=== PATIENT | female | born 1930 | race Caucasian/White ===

== ENCOUNTER 2016-08-11 17:34 | Inpatient (IN) | payer MEDICARE, OTHER ==
[~2016-08-11] VITALS: Ht 167.6 cm; Wt 58.1 kg
[2016-08-11 18:23] LABS: BASOPHILS 0.2 % (0.0-2.0); EOSINOPHILS 1.2 % (0-7); HEMATOCRIT 42.2 % (36.0-48.0); HEMOGLOBIN 14.1 g/dL (12-16); IMMATURE GRANULOCYTES 0.3 % (0-5); LYMPHOCYTES 17.3 % (15-50); MCH 31.1 pg (26.0-34.0); MCHC 33.4 g/dL (31.0-37.0); MONOCYTES 4.4 % (2-11); NEUTROPHILS 76.6 % (40-80); PLATELET COUNT 228 10x3/uL (130-400); RBC 4.54 10x6/uL (4.00-5.40); RDW 13.8 % (11.5-14.5); WBC 9.3 10x3/uL (4.8-10.8)
[2016-08-11 18:30] LABS: INR 0.96 (0.85-1.17); PROTIME 12.6 SECONDS (11.6-15.0)
[2016-08-11 18:35] LABS: ALBUMIN 4.2 g/dL (3.4-5.0); ANION GAP 14.3 mmol/L (8-16); BILIRUBIN - TOTAL 0.53 mg/dL (0.2-1.3); CALCIUM 9.2 mg/dL (8.5-10.1); CARBON DIOXIDE 28.8 mmol/L (21.0-32.0); CREATININE - SERUM 0.8 mg/dL (0.6-1.3); POTASSIUM - SERUM 4.1 mmol/L (3.5-5.1); PROTEIN - SERUM 7.5 g/dL (6.4-8.2)
[2016-08-11 19:29] LABS: APPEARANCE CLEAR (CLEAR); BILIRUBIN NEGATIVE (NEGATIVE); COLOR YELLOW (YELLOW); GLUCOSE NEGATIVE (NEGATIVE); KETONE NEGATIVE (NEGATIVE); LEUKOCYTE ESTERASE NEGATIVE (NEGATIVE); NITRITE NEGATIVE (NEGATIVE); PROTEIN NEGATIVE (NEGATIVE); UROBILINOGEN NORMAL (NORMAL)
[2016-08-11 20:00] VITALS: BP 163/72
[2016-08-11 20:46] VITALS: BP 163/72; BMI 20.7
--- NOTE | 2016-08-11 21:04 | NUR ---
PT ARRIVED FROM ER AT THIS TIME WITH FAMILY AT SIDE PT PRESENTED WITH LEFT HIP FX OF THE FEMORAL NECK PER ER REPORT. PT IVP 20G TO LEFT WRIST INFUSING D51/2 NS WITH 20KCL AT THIS TIME NO SKIN BREAK DOWN OBSERVED RESPERATIONS ARE EVEN AND UNLABORED ON ROOM AIR WITH ALL LOBES BILATERALLY CLEAR. CALL LIGHT IN REACH SRX2 BED LOW AND LOCKED FAMILY IN ROOM AT BEDSIDE AT THIS TIME WILL CONTINUE TO MONITOR
[2016-08-12] VITALS (13 sets, daily range): BP systolic 103–149; BP diastolic 49–83; Ht 167.6 cm; Wt 58.1 kg
[2016-08-12] MEDS ORDERED: COSOPT EYE DROPS5 ML EACH EYE (02:41)
[2016-08-12] MEDS ORDERED: XALATAN 0.0052.5 ML EACH EYE (02:41)
[2016-08-12] MEDS ORDERED: TIMOPTIC 0.5 % O5 ML EACH EYE (02:42)
--- NOTE | 2016-08-12 07:20 | NUR ---
PATIENT RECEIVED ALERT IN HIGH MAXWELL POSITION. RESPIRATIONS EVEN AND UNLABORED. DENIES NEEDS. SIDE RAILS UP X2. BED IN LOW POSITION. CALL LIGHT IN REACH.
--- NOTE | 2016-08-12 08:11 | NUR ---
PRE PROCEDURE MEDICATION ADMINISTERED WITH SIP OF WATER. WELL TOLERATED. DENIES NEEDS.
--- NOTE | 2016-08-12 09:34 | NUR ---
PATIENT OFF FLOOR TO SURGERY VIA BED
--- NOTE | 2016-08-12 11:40 | NUR ---
PATIENT BACK TO ROOM FROM SURGERY VIA BED. A/O X4. VITAL SIGNS STABLE. DRESSING TO LEFT HIP CLEAN, DRY AND INTACT. ICE PACK IN PLACE. INCENTIVE SPIROMETER AND TEACHING ON USE PROVIDED. DEMONSTRATES CORRECT USE. FAMILY PRESENT. DENIES PAIN. SCDS ON BILATERALLY. SIDE RAILS UP X2. BED IN LOW POSITION. CALL LIGHT IN REACH.
--- NOTE | 2016-08-12 13:20 | NUR ---
PATIENT ALERT IN HIGH MAXWELL POSITION. VITAL SIGNS STABLE. FAMILY PRESENT. SIDE RAILS UP X2. BED IN LOW POSITION. CALL LIGHT IN REACH. DENIES NEEDS.
--- NOTE | 2016-08-12 14:22 | NUR ---
ALERT IN BED. C/O PAIN 11/15. DILAUDID WELL TENDER SET UP ACCORDING TO ORDERS. USE EXPLAINED. STATES UNDERSTANDING. WELL TENDER BUTTON WITHIN REACH. REFUSES TO REPOSITION AT THIS TIME. SIDE RAILS UP X2. BED IN LOW POSITION. CALL LIGHT IN REACH. IVY ALARM ON.
--- NOTE | 2016-08-12 18:15 | NUR ---
PATIENT ALERT IN BED. NO SIGNS OF DISTRESS NOTED. PATIENT REPOSITIONED IN BED. PILLOW PLACED BENEATH LEFT SIDE. ICE PACK IN PLACED. SIDE RAILS UP X2. BED IN LOW POSITION. CALL LIGHT IN REACH. CRIME PREVENTION WORKER BUTTON IN HAND.
[2016-08-13] VITALS (7 sets, daily range): BP systolic 106–125; BP diastolic 43–67
--- NOTE | 2016-08-13 00:01 | NUR ---
PT SITTING UP IN BED PATTERN KEEPER MELO IN ROOM WITH PT AT THIS TIME AND NO DISTRESS OBSERVED PT RATES PAIN " SORE" PT DID NOT PROVIED NUMBER FOR PAIN SCALE RESPERATIONS EVEN AND UNLABORED BED LOW AND LOCKED CALL LIGHT IN REACH SRX2 WILL MONITOR
[2016-08-13 05:15] LABS: MCH 30.7 pg (26.0-34.0); MCHC 32.9 g/dL (31.0-37.0); MCV 93.2 fL (80.0-100.0); MEAN PLATELET VOLUME 10.2 fL (7.4-10.4); RDW 14.2 % (11.5-14.5); WBC 8.7 10x3/uL (4.8-10.8)
[2016-08-13 05:16] LABS: HEMATOCRIT 33.1 % (36.0-48.0); HEMOGLOBIN 10.9 g/dL (12-16); RBC 3.55 10x6/uL (4.00-5.40)
--- NOTE | 2016-08-13 07:15 | NUR ---
PATIENT RECEIVED IN HIGH MAXWELL POSITION RESTING WITH EYES CLOSED. RESPIRATIONS EVEN AND UNLABORED. SIDE RAILS UP X2. BED IN LOW POSITION. CALL LIGHT IN REACH. SCDS ON BILATERALLY. IVY ALARM ON. SIFTER AND MILLER BUTTON IN REACH.
--- NOTE | 2016-08-13 08:10 | NUR ---
PATIENT REPOSITIONED IN BED. WELL TOLERATED. SCHEDULED MEDICATION ADMINISTERED. DENIES NEEDS. SIDE RAILS UP X2. BED IN LOW POSITION. CALL LIGHT IN REACH.
--- NOTE | 2016-08-13 11:38 | NUR ---
PATIENT SITTING UP IN CHAIR ALERT. NO SIGNS OF DISTRESS NOTED. DILAUDID DENTAL EQUIPMENT REPAIRER D/C PER ORDERS. NORCO ADMINISTERED PER PRN ORDER. DENIES NEEDS. CALL LIGHT IN REACH. FAMILY PRESENT.
--- NOTE | 2016-08-13 12:45 | NUR ---
SITTING UP IN CHAIR EATING LUNCH AND VISITING WITH FAMILY. NO SIGNS OF DISTRESS NOTED. CALL LIGHT IN REACH. DENIES NEEDS.
--- NOTE | 2016-08-13 16:15 | NUR ---
PATIENT IN HIGH MAXWELL POSITION ALERT AND WATCHING TV. RESPIRATIONS EVEN AND UNLABORED. DENIES PAIN. SIDE RAILS UP X2. BED IN LOW POSITION. CALL LIGHT IN REACH.
--- NOTE | 2016-08-13 18:10 | NUR ---
ALERT IN HIGH MAXWELL POSITION WATCHING TV. RESPIRATIONS EVEN AND UNLABORED. DENIES PAIN AND OTHER NEEDS. BED IN LOW POSITION. CALL LIGHT IN REACH.
--- NOTE | 2016-08-13 19:00 | NUR ---
ASSISTED PATIENT TO BSC AND BACK TO BED. PATIENT HAD MEDIUM BM. AAOX4. RR EVEN AND UNLABORED. 0 S/S OF DISTRESS. STATES PAIN IS A 5/10. IV TO LEFT WRIST S/L WITH NO REDNESS OR SWELLING. KRAMER SECURED WITH STATLOCK AND DRAINING TO GRAVITY. SCD'S IN ROOM BUT OFF. SRX2. BED LOW. CALL LIGHT WITHIN REACH.
--- NOTE | 2016-08-14 00:03 | NUR ---
PATIENT SLEEPING IN SEMI-MAXWELL'S POSITION. NO VISUAL SIGNS OF DISTRESS. PATIENT'S BED IN THE LOWEST POSITION AND CALL LIGHT WITHIN REACH.
[2016-08-14 04:00] VITALS: BP 115/53
[2016-08-14 05:41] LABS: BASOPHILS 0.2 % (0.0-2.0); EOSINOPHILS 1.8 % (0-7); HEMATOCRIT 30.6 % (36.0-48.0); HEMOGLOBIN 10.1 g/dL (12-16); IMMATURE GRANULOCYTES 0.2 % (0-5); LYMPHOCYTES 20.4 % (15-50); MCH 30.1 pg (26.0-34.0); MCV 91.3 fL (80.0-100.0); MEAN PLATELET VOLUME 10.2 fL (7.4-10.4); MONOCYTES 9.3 % (2-11); NEUTROPHILS 68.1 % (40-80); PLATELET COUNT 165 10x3/uL (130-400); RBC 3.35 10x6/uL (4.00-5.40); RDW 13.7 % (11.5-14.5); WBC 8.5 10x3/uL (4.8-10.8)
[2016-08-14 06:14] LABS: ANION GAP 11.2 mmol/L (8-16); CARBON DIOXIDE 27.3 mmol/L (21.0-32.0); CREATININE - SERUM 0.8 mg/dL (0.6-1.3); POTASSIUM - SERUM 3.5 mmol/L (3.5-5.1)
[2016-08-14 08:10] VITALS: BP 149/60
--- NOTE | 2016-08-14 08:27 | NUR ---
PT ASSESSMENT COMPLETE AWAKE AND ALERT ORIENTED X 3 LUNGS CLAER BILATERALLY NO ACUTE DISTRESS NOTED VOICES ALL NEEDS TO STAFF. CALL LIGHT INREACH SIDE RAILS UP X 2 DRESSING INTACT TO LEFT HIP
[2016-08-14 11:31] VITALS: BP 114/57
--- NOTE | 2016-08-14 13:00 | NUR ---
PATIENT IN BED WITH IV INTACT. NO COMPLAINTS. FAMILY AT BEDSIDE. CALL LIGHT WITHIN REACH.
--- NOTE | 2016-08-14 14:54 | NUR ---
NUTRITION MONITORING & EVAL CHART REVIEWED, PT VISIT. TOLERATING REG DIET, 75 TO 100% INTAKE. WILL CONTINUE TO PROVIDE DIET, MONITOR PT PROGRESS. RD FOLLOWING
[2016-08-14 16:26] VITALS: BP 126/58
--- NOTE | 2016-08-14 16:53 | NUR ---
Patient Name: FLORES LR Admission Status: ER Accout number: [id number] Admission Date: 08-11-2016 : 1931 Admission Diagnosis: Attending: SELENE Current LOS: 3 Anticipated DC Date: 08-15-2016 Planned Disposition: Home Primary Insurance: MEDICARE A & B Discharge Planning Comments: CM MET WITH PATIENT AND NIECE (DAX) REGARDING D/C NEEDS AND PLANS. PATIENT HAS 2 STEPS W/O RAILS TO ENTER HER HOME AND NO STAIRS INSIDE. PATIENTS NIECE WILL DRIVE PATIENT HOME AT DISCHARGE. PATIENT STATED SHE WILL GO TO [place] TO HER NIECES HOME IN [place]. PATIENTS NIECE IS AN ORTHOPEDIC NURSE. PATIENT STATED SHE IS INDEPENDENT WITH HER CARE AND HAS A WHEELCHAIR, BS COMMODE, AND SHOWER CHAIR AT HOME. PATIENTS PCP IS DR. IBRAHIM AND PH[facility]AC[facility] IS [facility] [address] PATIENT REFUSED HOME HEALTH STATING HER NIECE WILL TAKE CARE OF HER. CM WILL CONTINUE TO FOLLOW PATIENT WITH D/C NEEDS AND PLANS. PCP DR. ALEXANDRIA ANNE ON [address]- [phone] DAX (NIECE) [phone] DEANA (NEPHEW) O [phone] OR C [phone] Assembly Operator: Kerline Bullock Is the patient Alert and Oriented? Yes 0 * How many steps to enter\exit or inside your home? 2 W/O RAIL 0 * PCP DR. IBRAHIM 0 * [facility] [address] * Preadmission Environment Home Alone 0 * ADLs Independent 0 * Equipment Bedside Commode Shower Chair Wheelchair 0 * List name and contact numbers for known caregivers / representatives who currently or will assist patient after discharge: DAX (NIECE) [phone] DEANA (NEPHEW) O- [phone] , C [phone] * Community resources currently utilized None 0 * Additional services required to return to the preadmission environment? Yes 0 * Can the patient safely return to the preadmission environment? Yes 0 * Has this patient been hospitalized within the prior 30 days at any hospital? No 0 Grand Total: 0
--- NOTE | 2016-08-14 18:19 | NUR ---
PT TOLERATING BLADDER TRAINING WELL WILL D/C KRAMER IN AM. NO ACUTE DISTRESS NOTED.
[2016-08-14 21:00] VITALS: BP 125/65
[2016-08-15 01:00] VITALS: BP 148/71
--- NOTE | 2016-08-15 04:00 | NUR ---
PATIENT SLEEPING WITH NO DISTRESS NOTED. DRESSING TO LEFT HIP CDI. SCD'S ON. BED ALARM ON. CALL LIGHT WITHIN REACH.
[2016-08-15 05:00] VITALS: BP 116/66
[2016-08-15 05:57] LABS: BASOPHILS 0.3 % (0.0-2.0); EOSINOPHILS 1.7 % (0-7); HEMATOCRIT 29.9 % (36.0-48.0); IMMATURE GRANULOCYTES 0.3 % (0-5); LYMPHOCYTES 18.5 % (15-50); MCH 30.2 pg (26.0-34.0); MCHC 33.4 g/dL (31.0-37.0); MCV 90.3 fL (80.0-100.0); MEAN PLATELET VOLUME 10.5 fL (7.4-10.4); MONOCYTES 10.7 % (2-11); NEUTROPHILS 68.5 % (40-80); RBC 3.31 10x6/uL (4.00-5.40); RDW 13.5 % (11.5-14.5); WBC 7.6 10x3/uL (4.8-10.8)
[2016-08-15 06:06] LABS: PLATELET COUNT 217 10x3/uL (130-400)
[2016-08-15 06:24] LABS: ALBUMIN 2.6 g/dL (3.4-5.0); ALKALINE PHOSPHATASE 56 U/L (46-116); ALT (SGPT) 25 U/L (10-68); CALC OSMOLALITY 284 mosm/kg (275-300); CALCIUM 8.3 mg/dL (8.5-10.1); CARBON DIOXIDE 28.7 mmol/L (21.0-32.0); CHLORIDE - SERUM 105 mmol/L (98-107); CREATININE - SERUM 0.7 mg/dL (0.6-1.3); GLUCOSE 117 mg/dL (74-106); POTASSIUM - SERUM 3.1 mmol/L (3.5-5.1); PROTEIN - SERUM 5.9 g/dL (6.4-8.2); SODIUM 142 mmol/L (136-145); UREA NITROGEN 14 mg/dL (7-18); eGFR NON AFRICAN AMERICAN 84 mL/min (90-120)
--- NOTE | 2016-08-15 07:07 | OP ---
PATIENT NAME: FLORES LR MEDICAL RECORD: [id number] :31 LOCATION:[id number] ADMISSION DATE:08/11/16 SURGEON: ANT ARORA MD DATE OF OPERATION: 08/12/2016 PREOPERATIVE DIAGNOSIS: Left femoral neck fracture. POSTOPERATIVE DIAGNOSIS: Left femoral neck fracture. PROCEDURE PERFORMED: Left hip hemiarthroplasty. SURGEON: Gilmer Arora MD. ANESTHESIA: Spinal. CONDITION: She tolerated the procedure well, was transferred to the recovery room in stable condition at the termination of the procedure. INDICATIONS: This is a pleasant 86-year-old female that had a fall, fractured her left proximal hip. She had a displaced femoral neck fracture. We discussed risks, benefits, and alternatives of surgery. She understood and wished to proceed. OPERATIVE REPORT: The patient was taken to the operating room and placed in supine position, a spinal anesthesia was obtained. She was then placed in a lateral position with her left hip up. Her left hip was confirmed to be the correct hip. It was then prepped and draped in normal fashion. The procedure was begun by doing a secondary ChloraPrep and then Ioban dressing placement. I then made a lateral incision, took this down, identified the IT band and split the IT band. The Charnley retractor was placed. The anterior portion of the gluteus medius and the capsule was then taken down as a unit. I then proceeded to do a cleanup cut on the femoral neck, removed the femoral head. I then proceeded to copiously irrigate following which the leg was taken to a bag and cookie cutter and canal finder were used to open the femur. I then broached up to a size 10. She was trialed with x-ray visualizing this. Her overall length did not look good to be off; therefore, she was this was taken out. She was copiously irrigated, then high offset size 10 stem with a 46 head and -3 neck were placed. She was reduced. She felt very stable on the table. She was irrigated, following which she was closed with 2 JuggerKnot suture anchors bringing the gluteus medius and capsule back to the trochanter. I then closed the IT band with a #1 barbed PDS. I then closed with 2-0 Vicryl, then raulito. She was at this juncture awakened and transferred to the recovery room in stable condition at the termination of the procedure, having tolerated the procedure well. TRANSINT:[id number] Voice Confirmation ID: [id number] DOCUMENT ID: [id number] OPERATIVE REPORT [id number] FLORES LR, ANT LIMA MD at 0707 CC: [id number] DICTATION DATE: 08/13/16 1436 AUTO BODY MECHANIC APPRENTICE: 08/13/16 1526 [place] [id number]
--- NOTE | 2016-08-15 07:40 | NUR ---
VERY ANGRY THIS MORNING BECAUSE KRAMER CATHETER WAS NOT DISCONTINUED ORDERED YESTERDAY. APOLOGIZED TO PT AND EXPLAINED THAT WE COULD GET THAT DONE FIRST THING THIS MORNING. PT VERBALIZED UNDERSTANDING. AWAKE AND ALERT. RESPIRATIONS EVEN AND NON LABORED. CALL LIGHT IN REACH, BED IN LOWEST POSITION WITH SRX2 AND WHEELS LOCKED. IVY MAT ALARM IN USE FOR FALL PRECAUTIONS. SCD'S OFF PER PT. WILL CONTINUE WITH PLAN OF CARE.
[2016-08-15 08:18] VITALS: BP 157/54
--- NOTE | 2016-08-15 08:35 | NUR ---
SCHEDULED MEDICATIONS ADMINISTERED AT THIS TIME. DRESSING TO LEFT HIP C/D/I. ASSESSMENT PERFORMED PER FLOWSHEET. KRAMER CATHETER D/C WITH CATH TIP INTACT. PT TOLERATED WITHOUT COMPLAINTS. DENIES PAIN AT THIS TIME. CALL LIGHT IN REACH, SRX2 WITH BED IN LOWEST POSITION AND LOCKED. IVY MAT ALARM IN USE AND SCD'S OFF PER PT. WILL CONTINUE WITH PLAN OF CARE.
[2016-08-15] MEDS ORDERED: HYDROCODON-ACE1 EAC7 PO (08:42)
--- NOTE | 2016-08-15 10:41 | NUR ---
CM REASSESSMENT NOTE: PATIENT IS GOING TO [facility] TO HER NIECES HOME. PATIENT STATED HER NIECE IS AN ORTHOPEDIC NURSE AND WILL BE TAKING CARE OF HER. PATIENT REFUSED HOME HEALTH. THE D/C IMM NOTICE SERVED. PATIENTS OTHER NIECE (DAX) WILL DRIVE HER TO [facility].
--- NOTE | 2016-08-15 10:45 | NUR ---
UP IN CHAIR PER PHYSICAL THERAPY AT THIS TIME. DENIES PAIN OR NEED FOR PAIN MEDICATION. CALL LIGHT IN REACH, WILL CONTINUE WITH PLAN OF CARE.
[2016-08-15] MEDS ORDERED: ASPIRIN325 MG PO (11:16)
--- NOTE | 2016-08-15 12:00 | NUR ---
REMAINS UP IN CHAIR AT THIS TIME. DISCHARGE PAPERWORK READY, BUT PT'S FAMILY MEMBER HAS TO GO GET PT'S CAR BEFORE PT CAN DISCHARGE. CALL LIGHT IN REACH, WILL CONTINUE WITH PLAN OF CARE.
[2016-08-15 12:01] VITALS: BP 131/54
--- NOTE | 2016-08-15 13:55 | NUR ---
DISCHARGE PAPERWORK REVIEWED WITH PT. DRESSING TO LEFT HIP CHANGER IN STERILE FASHION. DENIES QUESTIONS OR CONCERNS REGARDING MEDICATIONS OR DISCHARGE INSTRUCTIONS. IV TO LEFT WRIST D/C WITH CATH TIP INTACT. PT HAS ALREADY HAD FLU SHOT THIS SEASON. WILL D/C HOME WITH NIECE.
--- NOTE | 2016-09-19 16:33 | DS ---
PATIENT:FLORES LR :32 MEDICAL RECORD: [id number] DISCHARGE SUMMARY ADMISSION DATE: 08/11/16 DISCHARGE DATE: 08/15/16 DATE OF ADMISSION: 08/11/2016 DATE OF DISCHARGE: 08/15/2016 ADMITTING DIAGNOSIS: Left femoral neck fracture. DISCHARGE DIAGNOSIS: Left femoral neck fracture. PROCEDURE PERFORMED: Left hip hemiarthroplasty. HISTORY OF PRESENT ILLNESS: This is a pleasant 86-year-old female that fell, presents with a displaced left femoral neck fracture. She underwent a left hip hemiarthroplasty. She did quite well with this. She was able to progress with therapy. It was felt by the 7th, she could be discharged with home therapy. She was going to continue on weightbearing as tolerated with a walker, on anticoagulation therapy, on pain medicines with the plan to see us back in the office in about 2 weeks. DISCHARGE DIAGNOSES: 1. Left femoral neck fracture. 2. Postop acute blood loss anemia. TRANSINT:[id number] Voice Confirmation ID: [id number] DOCUMENT ID: [id number] ANT MEZA MD at 1633 CC: [id number] DICTATION DATE: 09/12/16 1120 PSYCHIATRIC NURSE: 09/13/16 0035 DIS IN 08/15/16 [facility] [address] [place] [address]
== END 2016-08-15 14:15 | disposition home or self-care (01) | DRG 470 ==
LOC: D.ER 17:34 → D.MS 18:33
PROVIDERS: Emergency Medicine; ADMIT Orthopaedic Surgery Sports Medicine
PROC: 0SRS0JZ Replacement of Left Hip Joint, Femoral Surface with Synthetic Substitute, Open Approach (ICD-10-PCS; principal; 2016-08-12 10:00)
DX: S72.002A Fracture of unspecified part of neck of left femur, initial encounter for closed fracture (principal); W01.0XXA Fall on same level from slipping, tripping and stumbling without subsequent striking against object, initial encounter; Y93.89 Activity, other specified